=== PATIENT | female | born 1950 | race Caucasian/White ===

== ENCOUNTER → 2017-09-13 | Outpatient (CLI) | payer MEDICARE ==
[~2017-09-13] MED LIST: ALPR.5; CARB200; HYDACE5; TOPI25
== END | disposition home or self-care (01) ==
LOC: LAB 14:35 → LAB SHORT 14:35 → LAB FUT 09-08 14:50
DX: K21.9 Gastro-esophageal reflux disease without esophagitis (principal)
CPT/HCPCS: 87338

== ENCOUNTER → 2019-03-22 | Outpatient (CLI) | payer MEDICARE | END | disposition home or self-care (01) | LOC: PLD 11:48 → LAB SHORT 11:48 | DX: C44.519 Basal cell carcinoma of skin of other part of trunk (principal) | CPT/HCPCS: 88305 ==

== ENCOUNTER → 2019-05-23 | Outpatient (CLI) | payer MEDICARE ==
[2019-05-23 15:18] LABS: Source, Urine Clean Catch
[2019-05-23 17:08] LABS: Bilirubin, Urine Neg (Neg); Blood, Urine 2+ (Neg); Glucose Qualitative, Urine Neg (Neg); Ketones, Urine Neg (Neg); Leukocyte Esterase, Urine 2+ (Neg); Nitrite, Urine Neg (Neg); Protein, Urine 1+ (Neg); Urobilinogen, Urine NORM (Normal)
[2019-05-23 17:24] LABS: Appearance, Urine Hazy (Clear); Bacteria Many /hpf; Color, Urine Yellow (P-Yellow); Squamous Epithelial Cells Few /hpf (Few); White Blood Cells, Urine TNTC /hpf (0-5)
== END | disposition home or self-care (01) ==
LOC: LAB SHORT 15:16 → OLS 15:16
PROVIDERS: Internal Medicine
DX: R30.0 Dysuria (principal)
CPT/HCPCS: 81001; 87077; 87086; 87186

== ENCOUNTER → 2019-05-30 | Outpatient (CLI) | payer MEDICARE | END | disposition home or self-care (01) | LOC: PLD 13:32 → LAB SHORT 13:32 | DX: C44.519 Basal cell carcinoma of skin of other part of trunk (principal) | CPT/HCPCS: 88305 ==

== ENCOUNTER → 2019-07-15 | Outpatient (CLI) | payer MEDICARE ==
[2019-07-20 15:09] LABS: HPV 16 Negative (Negative); HPV 18 Negative (Negative); HPV OTHER HR TYPES Negative (Negative)
== END ==
LOC: LAB 17:48 → LAB SHORT 17:48
PROVIDERS: Internal Medicine
DX: Z12.4 Encounter for screening for malignant neoplasm of cervix (principal)
CPT/HCPCS: 87624; G0145

== ENCOUNTER 2020-01-03 11:24 | Day surgery (SDC) | payer MEDICARE ==
[~2020-01-03] VITALS: Ht 165.1 cm; Wt 57.1 kg
[2020-01-03] MEDS ORDERED: TRAZ100 (12:10)
[2020-01-03] MEDS ORDERED: TRAZ50 (12:10)
[2020-01-03] MEDS ORDERED: PREG25 (12:10)
[2020-01-03] MEDS ORDERED: LAMO100 (12:11)
== END 2020-01-03 13:18 | disposition home or self-care (01) ==
LOC: ORSCSDS 11:24
PROVIDERS: Surgery
PROC: 0DB68ZX Excision of Stomach, Via Natural or Artificial Opening Endoscopic, Diagnostic (ICD-10-PCS; principal; 2020-01-03 12:30)
PROC: 0DB88ZX Excision of Small Intestine, Via Natural or Artificial Opening Endoscopic, Diagnostic (ICD-10-PCS; principal; 2020-01-03 12:30)
DX: R10.13 Epigastric pain (principal); R19.4 Change in bowel habit; E78.5 Hyperlipidemia, unspecified; K21.9 Gastro-esophageal reflux disease without esophagitis; Z79.899 Other long term (current) drug therapy
CPT/HCPCS: 87081; 88305; 88342; J2704; J7120

== ENCOUNTER 2020-08-31 07:52 | Day surgery (SDC) | payer MEDICARE ==
[~2020-08-31] VITALS: Ht 165.1 cm; Wt 56.3 kg
[~2020-08-31 07:52] MED LIST changes: +ATOR10 PO; +Aspir 8181 MG PO; +ERGO400 PO; +LAMO100; +Lamictal200 MG PO; +OMEP20ER PO; +PREG100 PO; +PREG25; +TRAZ100; +TRAZ50; +Vitamin B Comple1 EA PO
--- NOTE | 2020-08-31 08:27 | NUR ---
08/31/20 0827 Maris Flores (Anusha 1 TRY RIGHT HAND NO FLASH
== END 2020-08-31 10:05 | disposition home or self-care (01) ==
LOC: ORSCSDS 07:52
PROVIDERS: Surgery
PROC: 0DBK8ZX Excision of Ascending Colon, Via Natural or Artificial Opening Endoscopic, Diagnostic (ICD-10-PCS; principal; 2020-08-31 09:00)
DX: Z12.11 Encounter for screening for malignant neoplasm of colon (principal); D12.2 Benign neoplasm of ascending colon; K21.9 Gastro-esophageal reflux disease without esophagitis; E78.5 Hyperlipidemia, unspecified; Z79.899 Other long term (current) drug therapy; Z79.82 Long term (current) use of aspirin
CPT/HCPCS: 88305; J2704; J7120

== ENCOUNTER → 2022-10-06 | Outpatient (CLI) | payer MEDICARE | END | disposition home or self-care (01) | LOC: LAB 09:05 → LAB SHORT 09:05 → PLD 09:05 | DX: B07.9 Viral wart, unspecified (principal) | CPT/HCPCS: 88305 ==

== ENCOUNTER 2024-06-21 09:31 | Day surgery (SDC) | payer MEDICARE ==
[~2024-06-21] VITALS: Ht 165.1 cm; Wt 57.2 kg
[2024-06-21 11:06] VITALS: BP 116/97
== END 2024-06-21 11:30 | disposition home or self-care (01) ==
LOC: ORSCSDS 09:31
PROC: 08RJ3JZ Replacement of Right Lens with Synthetic Substitute, Percutaneous Approach (ICD-10-PCS; principal; 2024-06-21)
DX: H25.813 Combined forms of age-related cataract, bilateral (principal); H52.201 Unspecified astigmatism, right eye; M35.00 Sjogren syndrome, unspecified; K21.9 Gastro-esophageal reflux disease without esophagitis; E78.5 Hyperlipidemia, unspecified; Z79.899 Other long term (current) drug therapy